=== PATIENT | male | born 1965 | race Caucasian/White ===

== ENCOUNTER 2016-11-14 15:13 | Emergency (ER) | payer OTHER ==
[2016-11-14 16:21] LABS: ABSOLUTE NEUTROPHIL COUNT 4.5 K/mm3 (1.8-7.7); BASO # 0.1 K/mm3 (0.0-0.2); BASO % 0.7 % (0.2-1.0); EOS # 0.2 (0.0-0.5); EOS % 2.8 % (0.9-2.9); HEMATOCRIT 45.1 % (32.0-52.0); HEMOGLOBIN 15.1 gm/l (14.0-18.0); IMM NEUT% 0.6 % (0-1); LYMPH # 1.5 (1.0-4.8); LYMPH % 22.1 % (15-45); MEAN CELL VOLUME 84.3 fl (80.0-94.0); MEAN CORPUSCULAR HEMOGLOBIN 28.2 pg (27.0-31.0); MEAN CORPUSCULAR HGB CONC 33.5 g/dl (33.0-37.0); MEAN PLATELET VOLUME 9.7 fl (7.4-10.4); MONO # 0.5 (0.0-0.8); MONO % 7.3 % (4-12); NEUT % 66.5 % (43-75); PLATELET COUNT 266 K/mm3 (130-400); RED CELL DISTRIBUTION WIDTH 13.3 % (11.5-14.5)
[2016-11-14] MEDS ORDERED: FUROSEMIDE 40 MG/4 ML VIAL ONE (16:26)
[2016-11-14 17:04] LABS: ALB/GLOB RATIO 1.4 (>1.0); ALBUMIN 4.1 gm/dL (3.5-5.7); CALCIUM 8.8 mg/dL (8.6-10.3)
[2016-11-14] MEDS ORDERED: TETANUS,DIPHTHERIA TOXOID SYRINGE IM V ONE (17:15)
== END 2016-11-14 18:10 | disposition home or self-care (01) ==
LOC: ED 15:13
DX: I83.228 Varicose veins of left lower extremity with both ulcer of other part of lower extremity and inflammation (principal); Z23 Encounter for immunization; Z87.891 Personal history of nicotine dependence
CPT/HCPCS: 90714; 85379; 85025; 82550; 80053; 90471; 99283 ×2; 96374; J1940